=== PATIENT | female | born 2000 | race Caucasian/White ===

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

== ENCOUNTER 2019-02-10 18:04 | Emergency (ER) | payer OTHER ==
[2019-02-10 18:32] VITALS: BP 125/87
[2019-02-10] MEDS ORDERED: DOXYcycline CAP(*) 100 MG PO ONE ×2 (18:51→18:52)
--- NOTE | 2019-02-10 18:53 | UC ---
Throat Pain/Nasal Luis HPI - HPI Summary HPI Summary: 18-year-old female comes in with a chief complaint of 3 weeks of upper respiratory tract infection symptoms. Margret she had a runny nose and sinus symptoms. Over times gone into her chest that she has cough and chest congestion. She feels short of breath with activity. She had a fever 2 days ago. She did take some cough medicine which does help with the cough however overall she's getting worse. Denies any wheezing. Had asthma as a child but no recent wheezing. - History of Current Complaint Chief Complaint: UCRespiratory Stated Complaint: COUGH, SINUSES Time Seen by Provider: 02/10/19 18:17 Hx Last Menstrual Period: 01/21/19 Pain Intensity: 6 - Allergies/Home Medications Allergies/Adverse Reactions: Allergies Allergy/AdvReac Type Severity Reaction Status Date / Time latex Allergy Unknown Unknown Verified 02/10/19 18:23 Reaction Details Sulfa (Sulfonamide Allergy Unknown Unknown Verified 02/10/19 18:23 Antibiotics) Reaction Details Home Medications: Home Medications Pseudoephedrine TAB* [Sudafed TAB*] 30 mg PO Q6H PRN 02/10/19 [History Confirmed 02/10/19] PMH/Surg Hx/FS Hx/Imm Hx Previously Healthy: Yes - Surgical History Surgical History: Yes Surgery Procedure, Year, and Place: WISDOM TEETH EXTRACTIONS - Family History Known Family History: Positive: Non-Contributory - Social History Alcohol Use: None Substance Use Type: None Smoking Status (MU): Never Smoked Tobacco Review of Systems All Other Systems Reviewed And Are Negative: Yes Constitutional: Positive: Fever, Other - SEE HPI Skin: Positive: Negative Eyes: Positive: Negative ENT: Positive: Sore Throat, Nasal Discharge, Sinus Congestion Respiratory: Positive: Shortness Of Breath, Cough, Other - SEE HPI Cardiovascular: Positive: Negative Gastrointestinal: Positive: Negative Motor: Positive: Negative Neurovascular: Positive: Negative Musculoskeletal: Positive: Negative Neurological: Positive: Negative Psychological: Positive: Negative Is Patient Immunocompromised?: No Physical Exam Triage Information Reviewed: Yes Appearance: No Pain Distress, Well-Nourished, Ill-Appearing - MILD Vital Signs: Initial Vital Signs Temp 98 F 02/10/19 18:25 Pulse 56 02/10/19 18:25 Resp 16 02/10/19 18:25 BP 125/87 02/10/19 18:25 Pulse Ox 100 02/10/19 18:25 Vital Signs Reviewed: Yes Eye Exam: Normal Eyes: Positive: Conjunctiva Clear ENT: Positive: Pharyngeal erythema, Nasal congestion, Nasal drainage, TMs normal Neck: Positive: Supple Respiratory: Positive: No respiratory distress, Rhonchi Cardiovascular: Positive: RRR Musculoskeletal: Positive: Strength Intact, ROM Intact Neurological: Positive: Alert Psychological: Positive: Age Appropriate Behavior Skin Exam: Normal Throat Pain/Nasal Course/Dx - Course Course Of Treatment: We will treat with doxycycline as it will cover both sinuses and bronchitis and early pneumonia. No wheezing at this time therefore no albuterol. Patient will continue symptomatic treatment and get reevaluated if not completely improved or worse. - Differential Dx/Diagnosis Provider Diagnosis: Sinusitis, Bronchitis Discharge ED - Sign-Out/Discharge Documenting (check all that apply): Patient Departure All imaging exams completed and their final reports reviewed: No Studies - Discharge Plan Condition: Stable Disposition: HOME Prescriptions: DOXYcycline CAP(*) [DOXYcycline 100MG CAP(*)] 100 mg PO BID #18 cap Patient Education Materials: Sinusitis (ED), Acute Bronchitis (ED) Forms: *Physical Education Release Referrals: [facility] [Outside] Additional Instructions: FOLLOW UP WITH YOUR DOCTOR IF NOT COMPLETELY IMPROVED. GET RECHECKED SOONER IF WORSE OR ANY QUESTIONS OR CONCERNS. - Billing Disposition and Condition Condition: STABLE Disposition: Home
== END 2019-02-10 19:10 | disposition home or self-care (01) ==
LOC: UCCORT 18:04
DX: J32.9 Chronic sinusitis, unspecified (principal); J40 Bronchitis, not specified as acute or chronic; Z88.2 Allergy status to sulfonamides
CPT/HCPCS: 99212; A9270-GY; G0463